=== PATIENT | male | born 1940 | race Hispanic/Latino ===

== ENCOUNTER 2020-04-12 14:27 | Observation (INO) | payer MEDICARE, OTHER ==
[~2020-04-12] VITALS: Ht 167.6 cm; Wt 98.3 kg
[2020-04-12 15:56] LABS: BASOPHILS % 0.5 % (0.0-1.0); EOSINOPHILS # (AUTO) 0.3 (0.0-0.4); EOSINOPHILS % 4.5 % (0.0-6.0); HEMOGLOBIN 12.3 g/dL (14.0-18.0); LYMPHOCYTES # (AUTO) 1.3 (1.0-3.2); LYMPHOCYTES % 19.7 % (18.0-39.1); MEAN CORPUSCULAR HEMOGLOBIN 30.8 pg (28-32); MEAN CORPUSCULAR HGB CONC 32.4 g/dL (31-35); MEAN CORPUSCULAR VOLUME 95.2 fL (81-99); MONOCYTES # (AUTO) 0.6 (0.2-0.8); MONOCYTES % 9.8 % (4.4-11.3); NEUTROPHILS # (AUTO) 4.2 (2.1-6.9); NEUTROPHILS % 65.2 % (38.7-80.0); PLATELET COUNT 214 x10e3/uL (140-360); RED BLOOD COUNT 3.99 x10e6/uL (4.3-5.7)
[2020-04-12 16:08] LABS: ANION GAP 14.1 mmol/L (8-16); CALCIUM 8.4 mg/dL (8.4-10.2); CREATININE, SERUM 2.61 mg/dL (0.72-1.25); POTASSIUM 5.1 mmol/L (3.5-5.1)
[2020-04-12 16:09] LABS: ALBUMIN/GLOBULIN RATIO 1.3 (0.8-2.0)
[2020-04-12 16:15] LABS: CREATINE KINASE MB 2.8 ng/mL (0-5.0)
[2020-04-12] MEDS: SODIUM CHLORIDE 0.9% 1000ML 1,000 ML IV SCH (16:19)
--- NOTE | 2020-04-12 17:16 | Emergency Department Note ---
History of Present Illnes History of Present Illness Chief Complaint: General Medicine Complaints History of Present Illness This is a 79 year old male arrives to the ED at the request of his nephrologists for a worsening kidney function/GFR. Dr. Dar rosales had patient transfer the ED for IV hydration and admission. . Chief Complaint Comment Patient sent to the ER by Dr. Dodge for admission for IV fluids. Per patient, he has blood drawn last and was told his kidney function was low (GFR of 2?) and to come to the ER for IV hydration. Patient has a history of diabetes but not dialysis. Patient offers no complaints. VSS. Historian: Patient Arrival Mode: Car Onset (how long ago): unknown Radiation: Reports non-radiation Severity: moderate Onset quality: unable to specify Duration (how long): day(s) Timing of current episode: constant Progression: unable to specify Chronicity: recurrent Past Medical/Family History Physician Review I have reviewed the patient's past medical and family history. Any updates have been documented here. Past Medical History Recent Fever: No Clinical Suspicion of Infectio: No New/Unexplained Change in Ment: No Past Medical History: Hypertension, Diabetes, Hyperlipedemia Other Medical History: BPH Past Surgical History: Knee Replacement Social History Smoking Cessation: Never Smoker Alcohol Use: None Any Illegal Drug Use: No Other Any Pre-Existing Lines (PICC,: No Review of Systems Review of Systems Constitutional: Reports no symptoms EENTM: Reports no symptoms Cardiovascular: Reports no symptoms Respiratory: Reports no symptoms Gastrointestinal: Reports no symptoms Genitourinary: Reports no symptoms Musculoskeletal: Reports no symptoms Integumentary: Reports no symptoms Neurological: Reports no symptoms Psychological: Reports no symptoms Endocrine: Reports no symptoms Hematological/Lymphatic: Reports no symptoms Physical Exam Related Data Allergies: Coded Allergies: No Known Allergies (Unverified , 04/12/20) Triage Vital Signs Vital Signs Date Time Temp Pulse Resp B/P (MAP) Pulse Ox O2 Delivery O2 Flow Rate FiO2 04/12/20 15:10 98.2 71 16 108/55 95 Room Air Vital signs reviewed: Yes Physical Exam CONSTITUTIONAL Constitutional: Present well-developed, Present well-nourished HENT HENT: Present normocephalic, Present atraumatic, Present oropharynx clear/moist, Present nose normal HENT L/R: Present left ext ear normal, Present right ext ear normal EYES Eyes: Reports PERRL, Reports conjunctivae normal NECK Neck: Present ROM normal PULMONARY Pulmonary: Present effort normal, Present breath sounds normal CARDIOVASCULAR Cardiovascular: Present regular rhythm, Present heart sounds normal, Present capillary refill normal, Present normal rate GASTROINTESTINAL Abdominal: Present soft, Present nontender, Present bowel sounds normal GENITOURINARY Genitourinary: Present exam deferred SKIN Skin: Present warm, Present dry MUSCULOSKELETAL Musculoskeletal: Present ROM normal NEUROLOGICAL Neurological: Present alert, Present oriented x 3, Present no gross motor or sensory deficits PSYCHOLOGICAL Psychological: Present mood/affect normal, Present judgement normal Results Laboratory Result Diagram: 04/12/20 1522 04/12/20 1522 Laboratory Laboratory Tests Test 04/12/20 15:22 White Blood Count 6.44 x10e3/uL (4.8-10.8) Red Blood Count 3.99 x10e6/uL (4.3-5.7) Hemoglobin 12.3 g/dL (14.0-18.0) Hematocrit 38.0 % (38.2-49.6) Mean Corpuscular Volume 95.2 fL (81-99) Mean Corpuscular Hemoglobin 30.8 pg (28-32) Mean Corpuscular Hemoglobin Concent 32.4 g/dL (31-35) Red Cell Distribution Width 13.0 % (11.7-14.4) Platelet Count 214 x10e3/uL (140-360) Neutrophils (%) (Auto) 65.2 % (38.7-80.0) Lymphocytes (%) (Auto) 19.7 % (18.0-39.1) Monocytes (%) (Auto) 9.8 % (4.4-11.3) Eosinophils (%) (Auto) 4.5 % (0.0-6.0) Basophils (%) (Auto) 0.5 % (0.0-1.0) Neutrophils # (Auto) 4.2 (2.1-6.9) Lymphocytes # (Auto) 1.3 (1.0-3.2) Monocytes # (Auto) 0.6 (0.2-0.8) Eosinophils # (Auto) 0.3 (0.0-0.4) Basophils # (Auto) 0.0 (0.0-0.1) Absolute Immature Granulocyte (auto 0.02 x10e3/uL (0-0.1) Sodium Level 137 mmol/L (136-145) Potassium Level 5.1 mmol/L (3.5-5.1) Chloride Level 108 mmol/L (98-107) Carbon Dioxide Level 20 mmol/L (22-29) Anion Gap 14.1 mmol/L (8-16) Blood Urea Nitrogen 51 mg/dL (7-26) Creatinine 2.61 mg/dL (0.72-1.25) Estimat Glomerular Filtration Rate 24 ML/MIN (60-) BUN/Creatinine Ratio 20 (6-25) Glucose Level 253 mg/dL (74-118) Calcium Level 8.4 mg/dL (8.4-10.2) Total Bilirubin 0.2 mg/dL (0.2-1.2) Aspartate Amino Transf (AST/SGOT) 21 IU/L (5-34) Alanine Aminotransferase (ALT/SGPT) 18 IU/L (0-55) Alkaline Phosphatase 51 IU/L (40-150) Creatine Kinase 143 IU/L (30-200) Creatine Kinase MB 2.80 ng/mL (0-5.0) Troponin I 0.011 ng/mL (0-0.300) Total Protein 7.1 g/dL (6.5-8.1) Albumin 4.0 g/dL (3.5-5.0) Globulin 3.1 g/dL (2.3-3.5) Albumin/Globulin Ratio 1.3 (0.8-2.0) Lab results reviewed: Yes Imaging Imaging results reviewed: Yes Assessment & Plan Medical Decision Making MDM 79-year-old male arrives to the ED at the request of his heel sprayer first for acute on chronic renal failure. There is no source of infection at time of admission and patient was admitted for further workup and management. Assessment & Plan Final Impression: (1) ADAM (acute kidney injury) Depart Disposition: ADMITTED Last Vital Signs Date Time Temp Pulse Resp B/P (MAP) Pulse Ox O2 Delivery O2 Flow Rate FiO2 04/12/20 16:10 98.6 69 25 116/56 94 Room Air CHAVA SHIELDS DO Apr 12, 2020 17:16
--- NOTE | 2020-04-12 17:44 | NUR ---
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 PMH: CKD3 due to DM2, HTN, HLD, Nicotine dependence in remission, hearing deficits PSHx: knee replacement; cataract Allergies; see emr FH/SH; ; hx cigs meds; see MAR ROS: no f/c/s/N/V/D/LANG/cp/sob/skin rash/confusion/dizziness/leg apin/vision changes v/s revd PE tired appearing anicteric ns1s2 mod bs soft nt nd no e/t skin dry n. affect awake; REDUCED HEARING labs/meds revd A/P: 79yoM ADAM- IVF CKD3 due to DM2- check hab1c/lipids Obesity- 1/2 portion sizes needed outpt; no sodas/snacks. BMI 33- as above HTN- monitor and treat; home meds? HLD- check lipids Nicotine depenence in remission- f/u out. Prop; scd Dipso: f/u U/S and labs KARY KRISHNA MD, PHD.
[2020-04-12] MEDS ORDERED: ACETAMINOPHEN 325 MG TAB PO PRN (17:45)
[2020-04-12] MEDS ORDERED: DOCUSATE SODIUM 100 MG CAP PO PRN (17:45)
[2020-04-12] MEDS ORDERED: ONDANSETRON HCL INJ 2MG/ML 2ML 2 MG/ML VIAL IV PRN (17:45)
--- NOTE | 2020-04-12 18:05 | NUR ---
DR. FARRIS IN TO SEE THE PT.
[2020-04-12 18:12] LABS: CHOL/HDL RATIO 3.2 (3.9-4.7)
[2020-04-12 20:00] VITALS: BP 124/76
[2020-04-12 20:43] VITALS: BP 126/63
[2020-04-12] MEDS ORDERED: ZOLPIDEM TARTRATE 5 MG TAB PO PRN (21:00)
[2020-04-13] VITALS (7 sets, daily range): BP systolic 94–144; BP diastolic 49–72
[2020-04-13 00:03] LABS: CREATINE KINASE MB 2.6 ng/mL (0-5.0)
[2020-04-13] MEDS: SODIUM CHLORIDE 0.9% 1000ML 1,000 ML IV SCH (02:57)
[2020-04-13 06:11] LABS: BASOPHILS % 0.6 % (0.0-1.0); EOSINOPHILS # (AUTO) 0.4 (0.0-0.4); EOSINOPHILS % 5.7 % (0.0-6.0); HEMATOCRIT 36.6 % (38.2-49.6); HEMOGLOBIN 11.8 g/dL (14.0-18.0); LYMPHOCYTES # (AUTO) 1.6 (1.0-3.2); LYMPHOCYTES % 23.2 % (18.0-39.1); MEAN CORPUSCULAR HEMOGLOBIN 30.4 pg (28-32); MEAN CORPUSCULAR HGB CONC 32.2 g/dL (31-35); MEAN CORPUSCULAR VOLUME 94.3 fL (81-99); MONOCYTES # (AUTO) 0.7 (0.2-0.8); MONOCYTES % 9.2 % (4.4-11.3); NEUTROPHILS # (AUTO) 4.3 (2.1-6.9); PLATELET COUNT 199 x10e3/uL (140-360); RED BLOOD COUNT 3.88 x10e6/uL (4.3-5.7)
[2020-04-13 06:38] LABS: ALBUMIN 3.7 g/dL (3.5-5.0); ALBUMIN/GLOBULIN RATIO 1.3 (0.8-2.0); ANION GAP 13.2 mmol/L (8-16); CALCIUM 8.4 mg/dL (8.4-10.2); CREATININE, SERUM 2.24 mg/dL (0.72-1.25); POTASSIUM 5.2 mmol/L (3.5-5.1)
[2020-04-13] MEDS ORDERED: ASPIRIN81 MG PO (06:43)
[2020-04-13] MEDS ORDERED: AMLODIPINE BESYL5 MG PO (06:43)
[2020-04-13] MEDS ORDERED: ARICEPT5 MG PO (06:43)
[2020-04-13] MEDS ORDERED: FINASTERIDE5 MG PO (06:43)
[2020-04-13] MEDS ORDERED: CITALOPRAM HBR20 MG PO (06:43)
[2020-04-13] MEDS ORDERED: CETIRIZINE HCL10 M1 PO (06:43)
[2020-04-13] MEDS ORDERED: BENICAR20 MG PO (06:44)
[2020-04-13] MEDS ORDERED: FUROSEMIDE40 MG PO (06:44)
[2020-04-13] MEDS ORDERED: LOVASTATIN40 MG PO (06:44)
[2020-04-13] MEDS ORDERED: GABAPENTIN100 MG (06:44)
[2020-04-13] MEDS ORDERED: FLOMAX0.4 MG PO (06:44)
[2020-04-13 07:06] LABS: CREATINE KINASE MB 2.2 ng/mL (0-5.0)
--- NOTE | 2020-04-13 07:11 | NUR ---
IM- progress ntoe O/N see below ROS: no f/c/s/N/V/D/LANG/cp/sob/skin rash/confusion/dizziness/leg apin/vision changes v/s revd PE tired appearing anicteric ns1s2 mod bs soft nt nd no e/t skin dry n. affect awake; REDUCED HEARING labs/meds revd A/P: 79yoM ADAM- IVF CKD3 due to DM2- check hab1c/lipids Obesity- 1/2 portion sizes needed outpt; no sodas/snacks. BMI 33- as above HTN- monitor and treat; home meds? HLD- check lipids Nicotine depenence in remission- f/u out. Prop; scd Dipso: f/u U/S and labs - Change fluid to 1/2 NS; recheck K at 2pm. KARY KRISHNA MD, PHD.
--- NOTE | 2020-04-13 07:25 | NUR ---
PATIENT IN BED WITH HEAD OF BED ELEVATED, NO DISTRESS NOTED. IV FLUID INFUSING ORDERED. PATIENT'S DAUGHTER AT BED SIDE. BED IN LOWER POSITION, CALL LIGHT AT REACH.
[2020-04-13] MEDS: SODIUM CHLORIDE 0.45% 1,000 ML IV SCH ×2 (08:54→19:30)
--- NOTE | 2020-04-13 09:40 | Diagnostic Imaging Report ---
EXAM: Renal Ultrasound INDICATION: Acute kidney injury. ^ADAM ^[id number] ^[id number] COMPARISON: None TECHNIQUE: Transverse and longitudinal images of the kidneys and bladder were obtained. FINDINGS: Right Kidney: Length: 9.6 x 5.2 x 4.4 cm Appearance: Normal echogenicity. Collecting system: No hydronephrosis Stones: None Cyst/Mass: None Left Kidney: Length: 9.1 x 5.4 x 4.4 cm Appearance: Normal echogenicity. Collecting system: No hydronephrosis Stones: None Cyst/Mass: None Bladder: Normal. Ureteral jets not seen. Prominent prostate gland with volume of 84.74 cc. IMPRESSION: Normal renal ultrasound exam. Prominent prostate gland with volume of 84.74 cc. Signed by: Dr. Curtis Mills M.D. on 04/13/2020 9:37 AM
--- NOTE | 2020-04-13 10:25 | NUR ---
DAY 1 OBS. ADAM, K 5.2, BUN 49, CREAT 2.24, GFR 28. NORMAL RENAL US SENT TO R1 FOR LOC DETERMINATION
--- NOTE | 2020-04-13 11:22 | NUR ---
PATIENT OUT OF BED TO RECLINING CHAIR READING HIS NEWS PAPER. CALL LIGHT AT EASY REACH. DAUGHTER AT BED SIDE.
--- NOTE | 2020-04-13 13:25 | NUR ---
R1 LOC DETERMINATION: [facility] case account ending in 9514 has been reviewed and completed by PAS Physicians. Service Line: Level of Care (LOC) / Admission Status Review Initial patient type was submitted as: IO - Initial Observation PAS Recommendation: OU
--- NOTE | 2020-04-13 13:31 | Consultation ---
DATE OF CONSULTATION: 04/13/2020 Nephrology Consultation REASON FOR CONSULTATION: [id number] kidney injury. HISTORY OF PRESENT ILLNESS: The patient is a pleasant 79-year-old male, who does not speak any Mohawk. I obtained my history through his daughter, who speaks Mohawk and is present in the room. The patient is known to have chronic kidney disease stage 3, presumably from diabetic nephropathy and hypertension. 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 However, when she saw Dr. Dodge again in the clinic yesterday, they were told that the patient's kidney function had decreased to about a little over 20%. He was thus sent to be admitted to the hospital for IV hydration and his diabetic medication was stopped out of concern that it might be causing nephrotoxicity. PAST MEDICAL HISTORY: 1. Chronic kidney disease stage 3. 2. Diabetes mellitus. 3. Hypertension. 4. Obesity. FAMILY HISTORY: Noncontributory. SOCIAL HISTORY: Past history of smoking. MEDICATIONS: Reviewed in MAR. REVIEW OF SYSTEMS: The patient was asymptomatic at the time of admission, and has no active symptoms today. Specifically, he denies any chest pain, shortness of breath, nausea, vomiting, diarrhea, abdominal or flank pain, dysuria, gross hematuria, or leg edema. Rest of the system review is negative. PHYSICAL EXAMINATION: GENERAL: The patient is sitting up in a chair, comfortable, receiving IV fluids. VITAL SIGNS: Stable. Blood pressure 131/61, pulse of 69 per minute, respirations 20 per minute. He is afebrile. Pulse oximetry 95%. on room air. SKIN: Somewhat decrease in turgor. No generalized lesions seen. HEENT: Normocephalic, atraumatic head. Sclerae are anicteric. Oral cavity shows dry tongue. NECK: Supple without jugular venous distention. CHEST: Clear to auscultation bilaterally. No wheezing or crepitations. CARDIOVASCULAR: Shows S1 and S2 without rub or gallop. ABDOMEN: Soft, obese, but not distended. Nontender. EXTREMITIES: Without pitting edema or cyanosis. NEUROLOGIC: The patient is alert and appears oriented. No obvious focal deficits. IMAGING: Renal ultrasound yesterday showed no hydronephrosis. LABORATORY DATA: Hemoglobin is 11.8. Normal white count and platelets. Serum creatinine, which was 2.61 yesterday has improved to 2.24 today. BUN 49, potassium 5.2, sodium 142, bicarb 23, glucose 129, serum albumin is 3.7. IMPRESSION: 1. Acute kidney injury, possibly secondary to dehydration, now improving with IV fluids. a. Continue to monitor with repeat labs tomorrow morning. b. Avoid all known nephrotoxins. 2. Chronic kidney disease stage 3, likely secondary to diabetic nephropathy and hypertension. 3. Mild anemia, likely contribution from chronic kidney disease. 4. Mild hyperkalemia today, we will monitor. 5. Hypertension, controlled today without blood pressure medication. 6. Dehydration, on IV normal saline placement. No evidence of shortness of breath or fluid overload. We will decrease rate and encourage oral intake. I did discuss his renal status with his daughter present in the room. We will repeat a BMP in the morning and if his kidney function continues to show improvement, he can probably be discharged home from a renal standpoint. She denies patient taking any nonsteroidal anti-inflammatory medications recently. Thank you for this consult. George Johns MD [facility]/[place] /[id number]
--- NOTE | 2020-04-13 15:45 | NUR ---
PATIENT AMBULATED IN HALLWAY WITH PHYSICAL THERAPY. BACK TO CHAIR WITH CALL LIGHT AT REACH.
--- NOTE | 2020-04-13 17:04 | NUR ---
Patient will benefit from Outpatient PT to work on his dynamic standing balance to prevent undue injuries from falling. Addendum: 04/13/20 at 1705 by Danny Sanches PT Amended: Links added.
--- NOTE | 2020-04-13 18:57 | NUR ---
Resumed care of patient. Patient currently in shower. Family at bedside. All safety measures in place.
[2020-04-13 21:21] LABS: BILIRUBIN,URINE NEGATIVE (NEGATIVE); CLARITY,URINE CLEAR (CLEAR); COLOR,URINE YELLOW (YELLOW); KETONES,URINE NEGATIVE (NEGATIVE); LEUKOCYTE ESTERASE ,URINE NEGATIVE (NEGATIVE); NITRITE,URINE NEGATIVE (NEGATIVE); PROTEIN,URINE DIPSTICK NEGATIVE (NEGATIVE); URINE UROBILINOGEN 1 mg/dL (0.2 - 1)
[2020-04-13 21:36] LABS: BACTERIA,URINE FEW /HPF
[2020-04-14 00:01] VITALS: BP 130/70
[2020-04-14] MEDS ORDERED: HUMALOG JU100 UNIT/1 SQ (03:06)
[2020-04-14] MEDS ORDERED: INSULIN LI100 UNIT/2 SC (03:07)
[2020-04-14 04:01] VITALS: BP 141/75
--- NOTE | 2020-04-14 06:58 | NUR ---
D/C summary Principal Dx; ADAM- IVF Secondary Dx: CKD3 due to DM2- check hab1c/lipids Obesity- 1/2 portion sizes needed outpt; no sodas/snacks. BMI 33- as above HTN- monitor and treat; home meds? HLD- check lipids Nicotine depenence in remission- f/u out. Prop; scd Dipso: f/u U/S and labs 10-23 Change fluid to 1/2 NS; recheck K at 2pm. Stop olmesartan and furosemide d/c home stable Avoid NSAIDS, olmesartan and furosemide f/u pcp 2 days and nephrology 1 week d/c>35mins KARY KRISHNA MD, PHD.
--- NOTE | 2020-04-14 07:02 | NUR ---
Handoff report given to oncoming nurse. Patient awake and resting quietly in bed, no s/s of distress at this time. All safety measures in place. Family at bedside.
[2020-04-14 07:48] LABS: ANION GAP 12.2 mmol/L (8-16); CALCIUM 8.6 mg/dL (8.4-10.2); CREATININE, SERUM 1.81 mg/dL (0.72-1.25); POTASSIUM 5.2 mmol/L (3.5-5.1)
--- NOTE | 2020-04-14 07:50 | NUR ---
BEDSIDE SHIFT REPORT GIVEN WITH COMPUTER AT SIDE. PT RESTING QUIETLY WITH DAUGHTER AT BEDSIDE.
[2020-04-14 08:00] VITALS: BP 145/73
[2020-04-14 08:58] VITALS: BP 145/73
[2020-04-14] MEDS: SODIUM CHLORIDE 0.45% 1,000 ML IV SCH (10:56)
[2020-04-14 12:00] VITALS: BP 138/62
--- NOTE | 2020-04-14 12:50 | NUR ---
OK WITH DR. GUTIERRES FOR PT TO GO HOME. LABS CALL TO DR FARRIS AND PT WILL BE DC.
--- NOTE | 2020-04-14 12:51 | Progress Note ---
DATE: 04/14/2020 Nephrology Followup Note SUBJECTIVE: The patient remains asymptomatic today, feels better overall since admission. Followup for acute kidney injury on chronic kidney disease stage 3 secondary to diabetic nephropathy. OBJECTIVE: GENERAL: The patient is comfortable. VITAL SIGNS: Vital signs are stable. Blood pressure is 145/73, pulse 63 per minute, respirations 22 per minute. He is afebrile. Pulse oximetry 92% on room air. NECK: Supple without jugular venous distention. CHEST: Bilateral air entry without wheezing. No respiratory distress. CARDIOVASCULAR: Regular rate and rhythm. ABDOMEN: Soft, nondistended. EXTREMITIES: Without pitting edema or cyanosis. NEUROLOGIC: Alert and appears oriented. LABORATORY DATA: CBC from yesterday showed normal white count, hemoglobin of 11.8 and normal platelets. Most recent serum chemistries from this morning show an improved creatinine of 1.8, BUN 34, bicarb 21, potassium 5.2, sodium 137, bicarb 21, glucose 128, calcium 8.6. Urinalysis from yesterday was unremarkable including being negative for protein and cellular elements. IMPRESSION: 1. Acute kidney injury, secondary to dehydration. Most likely caused by a combination of Jardiance and Lasix given together. He was started on Jardiance about 6 months ago according to his daughter and was held on the day of this admission out of concern for dehydration. The patient has clearly responded to IV fluids in the hospital with improvement in renal function. 2. Chronic kidney disease, stage 3. 3. Hypertension, controlled on home medications. 4. Mild anemia, secondary to chronic kidney disease. Hemoglobin is stable. I have advised the patient to discontinue the Lasix for now. He may resume the Jardiance daily for his diabetic control. He will have follow up in the [facility] on April 26, 2020 with BMP result. The patient may be discharged home today from the hospital from Renal standpoint. George Johns MD [facility] /[id number]
--- NOTE | 2020-04-14 13:46 | NUR ---
PT WAS ACCOMPANIED DOWN VIA WC BY STAFF AFTER DISCHARGE PAPERS GIVEN TO PT AND DAUGHTER. IV REMOVED EARLIER.
== END 2020-04-14 13:46 | disposition home or self-care (01) ==
LOC: ER 15:38 → ERHOLD 15:43 → MED/SURG3 19:49
PROVIDERS: ADMIT Internal Medicine; ATTEND Internal Medicine
DX: N17.9 Acute kidney failure, unspecified (principal); I12.9 Hypertensive chronic kidney disease with stage 1 through stage 4 chronic kidney disease, or unspecified chronic kidney disease; N18.30 Chronic kidney disease, stage 3 unspecified; D63.1 Anemia in chronic kidney disease; E86.0 Dehydration; Z11.59 Encounter for screening for other viral diseases; E87.5 Hyperkalemia; E66.9 Obesity, unspecified; Z68.35 Body mass index [BMI] 35.0-35.9, adult
CPT/HCPCS: 36415 ×3; 76770; 80048; 80053 ×2; 80061; 81001; 82550 ×2; 82553 ×2; 82948 ×2; 83036; 84132; 84484 ×2; 85025 ×2; 96360; 96361; 97116; 97161; 99284; G0378 ×3; J7030; U0002